=== PATIENT | male | born 1975 | race Caucasian/White ===

== ENCOUNTER 2021-09-24 08:42 | Inpatient (IN) | payer OTHER ==
[~2021-09-24] VITALS: Ht 180.3 cm; Wt 81.2 kg
[2021-09-24 08:45] VITALS: BP 132/81
[2021-09-24 09:00] VITALS: BP 132/81
[2021-09-24 09:15] LABS: ABSOLUTE LYMPHOCYTES 1.7 thou/uL (0.8-5.3); ABSOLUTE MONOCYTES 0.5 thou/uL (0.0-1.2); ABSOLUTE NEUTROPHILS 5.5 thou/uL (1.6-8.1); BASOPHILS 0.2 %; HEMOGLOBIN 15.3 gm/dL (14.0-18.0); LYMPHOCYTES 22.4 %; MCH 30.5 pg (26.0-34.0); MCV 89.7 fL (80.0-100.0); MONOCYTES 6.2 %; MPV 7.9 fl. (7.2-11.1); NUCLEATED RBCS 0 /100WBC; PLATELET COUNT* 206 thou/uL (150-400); POLYS 71.2 %; RBC 5.02 mil/uL (4.50-6.00); RDW-CV 12.8 % (10.5-14.5); WBC 7.7 thou/uL (4.0-11.0)
[2021-09-24 09:28] LABS: BE 2.4 mmol/L (-2 to +3); pH 7.515 (7.340-7.450)
[2021-09-24 09:39] LABS: CALCIUM 8.5 mg/dL (8.5-10.1); POTASSIUM 3.5 mmol/L (3.5-5.1)
[2021-09-24 09:50] LABS: TOTAL BILIRUBIN 0.5 mg/dL (<0.1-1.0); TOTAL PROTEIN 7.9 g/dL (6.4-8.2)
[2021-09-24 10:36] LABS: APTT 28.3 Seconds (25.0-31.3)
--- NOTE | 2021-09-24 13:56 | EKG ---
[place] [address] ELECTROCARDIOGRAM REPORT Name: DAVID BECK Room: [place] [address] ADM IN .R.#: [id number] Admission: 09/24/21 Attend Phys: Christoph Chau Discharge: Date of : 71 Date of Service: 09/24/21 0846 Report #: [id number] THIS REPORT FOR: //name// [place] [facility] Test Date: 2021-09-24 Test Time: 08:46:26 Pat Name: DAVID BECK Department: Room: [facility] Gender: M [employer]: KAE : 1975 Requested By: Tung Davila Order Number: [id number] MD: Rai Dumont Measurements Intervals [place] Rate: 87 P: 13 [place]: 137 QRS: 21 QRSD: 83 T: -26 QT: 352 QTc: 424 Interpretive Statements Sinus rhythm Nonspecific T abnormalities, anterior leads No previous ECG available for comparison Electronically Signed On 09-24-2021 13:56:50 [employer] by Rai Dumont [email or web address] <ELECTRONICALLY SIGNED> By: Rai Dumont MD, [facility] 09/24/21 [id number] Rai Dumont MD, [facility] /EPI
[2021-09-24 15:27] VITALS: BP 131/80
[2021-09-24 19:45] VITALS: BP 133/81
[2021-09-24 20:15] VITALS: BP 122/79
[2021-09-24 23:30] VITALS: BP 118/79
[2021-09-25] VITALS (7 sets, daily range): BP systolic 101–123; BP diastolic 71–84
[2021-09-25 05:09] LABS: CREATININE 0.9 mg/dL (0.6-1.3); POTASSIUM 3.7 mmol/L (3.5-5.1)
[2021-09-25 05:12] LABS: MAGNESIUM 2.3 mg/dL (1.8-2.4); PHOSPHORUS* 4.2 mg/dL (2.5-4.9)
[2021-09-26] VITALS (18 sets, daily range): BP systolic 104–144; BP diastolic 65–83
[2021-09-26 03:54] LABS: ABSOLUTE LYMPHOCYTES 0.8 thou/uL (0.8-5.3); ABSOLUTE MONOCYTES 0.5 thou/uL (0.0-1.2); ABSOLUTE NEUTROPHILS 6.6 thou/uL (1.6-8.1); HEMATOCRIT 41.4 % (42.0-52.0); LYMPHOCYTES 10.3 %; MCV 88.5 fL (80.0-100.0); MONOCYTES 5.9 %; NUCLEATED RBCS 0 /100WBC; PLATELET COUNT* 228 thou/uL (150-400); POLYS 83.8 %; RBC 4.67 mil/uL (4.50-6.00); RDW-CV 12.7 % (10.5-14.5); WBC 7.9 thou/uL (4.0-11.0)
[2021-09-26 04:06] LABS: ALBUMIN 2.5 g/dL (3.4-5.0); CALCIUM 8.4 mg/dL (8.5-10.1); MAGNESIUM 2.3 mg/dL (1.8-2.4); POTASSIUM 4.3 mmol/L (3.5-5.1); TOTAL BILIRUBIN 0.7 mg/dL (<0.1-1.0); TOTAL PROTEIN 7.3 g/dL (6.4-8.2)
[2021-09-26 12:58] LABS: BE 2.9 mmol/L (-2 to +3); PCO2 37.5 mmHg (35.0-45.0); pH 7.466 (7.340-7.450)
[2021-09-26 13:02] LABS: PO2 133.5 mmHg (75.0-100.0)
[2021-09-27] VITALS (8 sets, daily range): BP systolic 103–138; BP diastolic 60–88
[2021-09-27 04:35] LABS: HEMATOCRIT 41.3 % (42.0-52.0); HEMOGLOBIN 13.8 gm/dL (14.0-18.0); MCH 30.2 pg (26.0-34.0); MCHC 33.3 g/dL (28.0-37.0); MCV 90.6 fL (80.0-100.0); RBC 4.55 mil/uL (4.50-6.00); RDW-CV 12.6 % (10.5-14.5); WBC 6.9 thou/uL (4.0-11.0)
[2021-09-27 05:09] LABS: ALBUMIN 2.4 g/dL (3.4-5.0); CALCIUM 8.4 mg/dL (8.5-10.1); CREATININE 0.9 mg/dL (0.6-1.3); POTASSIUM 3.8 mmol/L (3.5-5.1); TOTAL BILIRUBIN 0.6 mg/dL (<0.1-1.0)
[2021-09-28 04:00] VITALS: BP 125/77
[2021-09-28 08:34] VITALS: BP 99/62
[2021-09-28 12:00] VITALS: BP 113/68
[2021-09-28 14:30] LABS: CREATININE 1.1 mg/dL (0.6-1.3)
[2021-09-28 16:00] VITALS: BP 124/71
[2021-09-28 20:10] VITALS: BP 106/67
[2021-09-29] VITALS: BP 128/79
[2021-09-29 04:00] VITALS: BP 123/76
[2021-09-29 05:10] LABS: HEMATOCRIT 40.3 % (42.0-52.0); HEMOGLOBIN 13.3 gm/dL (14.0-18.0); MCH 29.8 pg (26.0-34.0); MCHC 33.1 g/dL (28.0-37.0); MCV 89.9 fL (80.0-100.0); MPV 8.4 fl. (7.2-11.1); RBC 4.48 mil/uL (4.50-6.00); RDW-CV 12.8 % (10.5-14.5); WBC 7.7 thou/uL (4.0-11.0)
[2021-09-29 05:30] LABS: ALBUMIN 2.3 g/dL (3.4-5.0); CALCIUM 7.9 mg/dL (8.5-10.1); CREATININE 0.9 mg/dL (0.6-1.3); MAGNESIUM 2.4 mg/dL (1.8-2.4); POTASSIUM 3.8 mmol/L (3.5-5.1); TOTAL BILIRUBIN 0.6 mg/dL (<0.1-1.0); TOTAL PROTEIN 6.2 g/dL (6.4-8.2)
[2021-09-29 12:00] VITALS: BP 135/76
[2021-09-29 16:00] VITALS: BP 117/70
[2021-09-29 20:15] VITALS: BP 105/68
[2021-09-30] VITALS: BP 121/63
[2021-09-30 02:06] LABS: MYCOPLASMA PNEUMONIA IgM <770 U/mL (0-769)
[2021-09-30 04:00] VITALS: BP 117/73
[2021-09-30 04:21] LABS: HEMATOCRIT 42.7 % (42.0-52.0); HEMOGLOBIN 14.2 gm/dL (14.0-18.0); MCH 29.9 pg (26.0-34.0); MCHC 33.1 g/dL (28.0-37.0); MCV 90.3 fL (80.0-100.0); MPV 8.2 fl. (7.2-11.1); RBC 4.74 mil/uL (4.50-6.00); RDW-CV 12.5 % (10.5-14.5); WBC 7.8 thou/uL (4.0-11.0)
[2021-09-30 05:13] LABS: ALBUMIN 2.4 g/dL (3.4-5.0); CALCIUM 8.1 mg/dL (8.5-10.1); CREATININE 1.1 mg/dL (0.6-1.3); MAGNESIUM 2.5 mg/dL (1.8-2.4); POTASSIUM 3.8 mmol/L (3.5-5.1); TOTAL BILIRUBIN 0.6 mg/dL (<0.1-1.0); TOTAL PROTEIN 6.5 g/dL (6.4-8.2)
[2021-09-30 08:00] VITALS: BP 102/53
[2021-09-30 12:00] VITALS: BP 100/63
[2021-09-30 16:00] VITALS: BP 112/68
[2021-09-30 20:00] VITALS: BP 107/72
[2021-09-30 23:06] LABS: MYCOPLASMA PNEUMONIA IgG <100 U/mL (0-99)
[2021-10-01 00:55] VITALS: BP 114/71
[2021-10-01 04:00] VITALS: BP 110/67
[2021-10-01 08:00] VITALS: BP 99/69
[2021-10-01 12:00] VITALS: BP 106/76
[2021-10-01 16:00] VITALS: BP 125/66
[2021-10-01 19:30] VITALS: BP 106/68
[2021-10-02] VITALS: BP 113/77
[2021-10-02 03:45] LABS: HEMATOCRIT 43.7 % (42.0-52.0); HEMOGLOBIN 14.6 gm/dL (14.0-18.0); MCH 30.1 pg (26.0-34.0); MCHC 33.4 g/dL (28.0-37.0); MCV 90.2 fL (80.0-100.0); MPV 8.3 fl. (7.2-11.1); NUCLEATED RBCS 0 /100WBC; PLATELET COUNT* 386 thou/uL (150-400); RBC 4.85 mil/uL (4.50-6.00); RDW-CV 12.9 % (10.5-14.5); WBC 9.5 thou/uL (4.0-11.0)
[2021-10-02 03:58] LABS: ALBUMIN 2.3 g/dL (3.4-5.0); CALCIUM 8.1 mg/dL (8.5-10.1); CREATININE 0.9 mg/dL (0.6-1.3); POTASSIUM 4.2 mmol/L (3.5-5.1); TOTAL BILIRUBIN 0.8 mg/dL (<0.1-1.0); TOTAL PROTEIN 6.1 g/dL (6.4-8.2)
[2021-10-02 04:00] VITALS: BP 122/81
[2021-10-02 06:18] LABS: ABSOLUTE LYMPHOCYTES 0.6 thou/uL (0.8-5.3); ABSOLUTE MONOCYTES 0.2 thou/uL (0.0-1.2); ABSOLUTE NEUTROPHILS 8.7 thou/uL (1.6-8.1); CLUMPED PLTS OCCASIONAL; PLATELET ESTIMATE INCREASED
[2021-10-02 08:00] VITALS: BP 105/68; BP 118/65
[2021-10-02 12:00] VITALS: BP 105/68
[2021-10-02 16:00] VITALS: BP 117/76
[2021-10-02 20:00] VITALS: BP 113/73
[2021-10-03] VITALS: BP 107/64
[2021-10-03 04:00] VITALS: BP 112/68
[2021-10-03 08:00] VITALS: BP 109/64
[2021-10-03 13:12] VITALS: BP 113/66
[2021-10-03 16:00] VITALS: BP 119/77
[2021-10-03 21:45] VITALS: BP 100/55
[2021-10-04 00:58] VITALS: BP 112/73
[2021-10-04 04:14] VITALS: BP 110/67
[2021-10-04 05:06] LABS: ABSOLUTE LYMPHOCYTES 0.5 thou/uL (0.8-5.3); ABSOLUTE MONOCYTES 0.7 thou/uL (0.0-1.2); ABSOLUTE NEUTROPHILS 12.7 thou/uL (1.6-8.1); BASOPHILS 0.1 %; HEMATOCRIT 43.4 % (42.0-52.0); HEMOGLOBIN 14.3 gm/dL (14.0-18.0); LYMPHOCYTES 3.8 %; MCH 29.5 pg (26.0-34.0); MCV 89.4 fL (80.0-100.0); MONOCYTES 5.4 %; MPV 8.7 fl. (7.2-11.1); NUCLEATED RBCS 0 /100WBC; PLATELET COUNT* 359 thou/uL (150-400); POLYS 90.7 %; RBC 4.85 mil/uL (4.50-6.00); RDW-CV 12.8 % (10.5-14.5); WBC 13.9 thou/uL (4.0-11.0)
[2021-10-04 05:21] LABS: ALBUMIN 2.5 g/dL (3.4-5.0); CALCIUM 8.2 mg/dL (8.5-10.1); CREATININE 0.9 mg/dL (0.6-1.3); POTASSIUM 4.4 mmol/L (3.5-5.1); TOTAL PROTEIN 6.2 g/dL (6.4-8.2)
[2021-10-04 10:00] VITALS: BP 115/75
[2021-10-04 16:06] VITALS: BP 112/73
[2021-10-05] VITALS: BP 113/65
[2021-10-05 04:00] VITALS: BP 110/70
[2021-10-05 09:15] VITALS: BP 150/66
[2021-10-05 12:48] VITALS: BP 130/74
[2021-10-05 16:54] VITALS: BP 121/70
[2021-10-05 20:00] VITALS: BP 127/74
--- NOTE | 2021-10-05 21:54 | CON ---
[address] [address] CONSULTATION Name: DAVID BECK Room: [address] M.R.#: [id number] Admission: 09/24/21 Attend Phys: Jackie Carter Discharge: Date of : 71 Report #: [id number] THIS REPORT FOR: cc: JOSELINE - No family physician/PCP FAM - No family physician/PCP Roland Quinn MD ~ DATE OF CONSULTATION: 09/25/2021 CONSULT HAS BEEN REQUESTED BY: Christoph Chau DO. INDICATION FOR CONSULTATION: Acute hypoxemic respiratory failure secondary to COVID-19. HISTORY OF PRESENT ILLNESS: This is a 46-year-old gentleman, who is a lifetime nonsmoker, does not have a history of cardiac or respiratory disease, recently tested positive for COVID-19 and presented with worsening shortness of breath. The patient does have a cough. There is not much sputum. There is no chest pain. He does not have swelling of lower extremities. He does not have calf pain. He did report that he had fever and chills earlier. He initially had an O2 saturation up to 79% on room air, currently he is on 100% BiPAP. He is maintaining O2 saturation of 95% with it, but he has considerable work of breathing. He has accessory muscle use. His respiratory rate was around 38 at the time of my evaluation. PAST MEDICAL HISTORY: There is no significant past medical history. ALLERGIES: No known drug allergies. FAMILY HISTORY: Mother has diabetes. SOCIAL HISTORY: Lifetime nonsmoker. No known history of heavy alcohol use or illegal drug use. PHYSICAL EXAMINATION: GENERAL: He is alert, awake and oriented. He is very anxious. VITAL SIGNS: Has a pulse of 95, blood pressure 100/75. He is saturating 95%. He is on a BiPAP of 15/7. O2 saturation has come up to around 96% to 97%, but he remained significantly tachypneic, respiratory rate is around 38-39. He is afebrile with a temperature of 36.3. HEENT: Head is normocephalic and atraumatic. Pupils are equal and reactive. There is no throat erythema. Throat examination is limited with the presence of BiPAP. NECK: Does not show raised JVP, asymmetry, mass or lymph nodes. CHEST: Symmetrical expansion on inspection and palpation. On auscultation, breath sounds are bilaterally equal, but there is significant [place] [address] CONSULTATION Name: DAVID BECK Room: [address]#: [id number] Admission: 09/24/21 Attend Phys: Jackie Carter Discharge: Date of : 71 Report #: [id number] are no added sounds. HEART: Regular. There is no murmur. ABDOMEN: Soft and nontender. EXTREMITIES: Lower extremities show no edema and no calf tenderness. SKIN: Dry and intact. NEUROLOGIC: Moves all extremities bilaterally equally and spontaneously with no focal deficit identified. IMAGING: I ordered a stat chest x-ray now and compared with the patient's previous chest x-ray. There are bilateral infiltrates consistent with COVID-19; however, the patient's respiratory status appears to be considerably worse than expected by chest x-ray findings. ASSESSMENT AND PLAN: 1. Acute hypoxemic respiratory failure secondary to COVID-19. The patient appears to be very anxious. He is on a BiPAP with 100% FiO2 and remains significantly tachypneic. I feel that giving a small doses of Ativan as currently ordered is reasonable; however, he appears to need more sedation and other than Precedex other sedative agents are likely to cause more respiratory depression than he will be able to tolerate. Therefore, I recommend that we transferred him over to the ICU and start a Precedex drip. If he fails to improve, then he may need intubated; however, we will certainly want to avoid that. 2. COVID-19. We will start with dexamethasone, initially starting with a higher dose of 10 mg b.i.d. as he does appear to have a component of bronchospasm as well. I understand the family has gone back and forth with the use of remdesivir. They are reported to now be agreeable though. I would therefore go ahead and reorder remdesivir. Follow LFTs. I recommend that we go ahead and give him Actemra now. Unfortunately, Actemra is not available. I do not feel strongly either way regarding administering or holding off on convalescent plasma. There is no definite evidence of benefit. 3. Bronchospasm. We will also give him nebulized bronchodilators. 4. Pulmonary infiltrates, primarily secondary to COVID; however, I agree with giving him antibiotics to cover for secondary bacterial infections as currently ordered. 5. Deep venous thrombosis prophylaxis/evaluation for thromboembolic phenomena. The D-dimer is low; therefore, I agree with intermediate dose Lovenox as currently ordered. 6. Gastrointestinal prophylaxis, Pepcid. 7. Clostridium difficile prophylaxis, Lactinex. 8. Hyperglycemia, insulin sliding scale. 9. Fluid and electrolytes. For now, I discontinued his IV fluids. We will follow fluid status closely. 10. The patient is critically ill at this time. [address] [id number] CONSULTATION Name: DAVID BECK Room: [address]#: [id number] Admission: 09/24/21 Attend Phys: Jackie Carter Discharge: Date of : 71 Report #: [id number] Total time spent providing critical care to this patient today exceeds 40 minutes. <ELECTRONICALLY SIGNED> By: Roland Quinn MD 10/05/21 2154 1650 2021Astanley Quinn MD /nt
[2021-10-06 01:58] VITALS: BP 106/70
[2021-10-06 04:45] LABS: ABSOLUTE LYMPHOCYTES 0.5 thou/uL (0.8-5.3); ABSOLUTE MONOCYTES 0.9 thou/uL (0.0-1.2); ABSOLUTE NEUTROPHILS 13.5 thou/uL (1.6-8.1); BASOPHILS 0.2 %; HEMATOCRIT 39.9 % (42.0-52.0); HEMOGLOBIN 13.5 gm/dL (14.0-18.0); LYMPHOCYTES 3.6 %; MCH 29.8 pg (26.0-34.0); MCHC 33.9 g/dL (28.0-37.0); MCV 87.9 fL (80.0-100.0); MONOCYTES 5.7 %; NUCLEATED RBCS 0 /100WBC; POLYS 90.5 %; RBC 4.54 mil/uL (4.50-6.00); RDW-CV 12.7 % (10.5-14.5)
[2021-10-06 05:21] LABS: ALBUMIN 2.2 g/dL (3.4-5.0); CREATININE 0.7 mg/dL (0.6-1.3); POTASSIUM 4.4 mmol/L (3.5-5.1); TOTAL BILIRUBIN 0.6 mg/dL (<0.1-1.0); TOTAL PROTEIN 5.7 g/dL (6.4-8.2)
[2021-10-06 05:57] LABS: PLATELET COUNT* 235 thou/uL (150-400)
[2021-10-06 06:08] VITALS: BP 117/71
[2021-10-06 08:00] VITALS: BP 113/67
[2021-10-06 11:47] VITALS: BP 114/68
[2021-10-06 16:32] VITALS: BP 116/76
[2021-10-06 20:30] VITALS: BP 125/78
[2021-10-07 02:22] VITALS: BP 111/67
[2021-10-07 05:57] LABS: HEMATOCRIT 41.6 % (42.0-52.0); HEMOGLOBIN 14.1 gm/dL (14.0-18.0); MCH 29.8 pg (26.0-34.0); MCHC 33.8 g/dL (28.0-37.0); MPV 8.8 fl. (7.2-11.1); NUCLEATED RBCS 0 /100WBC; PLATELET COUNT* 227 thou/uL (150-400); RBC 4.72 mil/uL (4.50-6.00); RDW-CV 12.8 % (10.5-14.5); WBC 13.4 thou/uL (4.0-11.0)
[2021-10-07 06:28] VITALS: BP 100/72
[2021-10-07 06:28] LABS: ALBUMIN 2.4 g/dL (3.4-5.0); CREATININE 0.8 mg/dL (0.6-1.3); MAGNESIUM 2.2 mg/dL (1.8-2.4); POTASSIUM 3.4 mmol/L (3.5-5.1); TOTAL BILIRUBIN 0.8 mg/dL (<0.1-1.0); TOTAL PROTEIN 5.9 g/dL (6.4-8.2)
[2021-10-07 06:57] LABS: ABSOLUTE LYMPHOCYTES 1.1 thou/uL (0.8-5.3); ABSOLUTE MONOCYTES 0.8 thou/uL (0.0-1.2); ABSOLUTE NEUTROPHILS 11.5 thou/uL (1.6-8.1)
[2021-10-07 06:58] LABS: PLATELET ESTIMATE ADEQUATE
[2021-10-07 08:00] VITALS: BP 111/66
[2021-10-07] MEDS ORDERED: DEXAMETHASONE1 MG PO (13:59)
[2021-10-07] MEDS ORDERED: VENTOLIN HFA 1818 GM INH (13:59)
[2021-10-07] MEDS ORDERED: DOXYCYCLINE 10100 MG PO (13:59)
[2021-10-07] MEDS ORDERED: PROTONIX40 M4 PO (13:59)
[2021-10-07 14:33] VITALS: BP 111/66
[2021-10-07 17:29] VITALS: BP 111/66
== END 2021-10-07 18:50 | disposition home or self-care (01) | DRG 177 ==
LOC: M.ERS 08:42 → M.TBA-ER 11:01 → M.ORTHSURG 20:10 → M.ICU 09-25 21:27 → M.ORTHSURG 09-27 11:55
PROVIDERS: Emergency Medicine; Internal Medicine; Internal Medicine Critical Care Medicine; Pediatrics; ADMIT Internal Medicine; ATTEND Internal Medicine
DX: U07.1 COVID-19 (principal); J12.82 Pneumonia due to coronavirus disease 2019; J15.6 Pneumonia due to other Gram-negative bacteria; J80 Acute respiratory distress syndrome; R73.9 Hyperglycemia, unspecified; E86.0 Dehydration; F41.9 Anxiety disorder, unspecified; Z83.3 Family history of diabetes mellitus